=== PATIENT | male | born 1970 | race Caucasian/White ===

== ENCOUNTER → 2023-04-25 12:16 | Outpatient (REF) | payer BC, SELFPAY ==
[2023-04-25 13:29] LABS: Hematocrit 47.8 % (39.0-52.0)
[2023-04-25 14:04] LABS: PSA, Total - Screen 0.79 ng/ml (0.0-4.0)
[2023-04-28 12:37] LABS: % Free Testosterone 2.4 % (1.6-2.9); Free Testosterone 78 pg/mL (47-244); Sex Hormone Binding Globulin 18 nmol/L (19-76); Total Testosterone 328 ng/dL (300-890)
== END ==
LOC: REG 12:16
PROVIDERS: ATTENDING PHYSICIAN Internal Medicine Endocrinology, Diabetes & Metabolism; FAMILY PHYSICIAN Family Medicine
DX: E23.0 Hypopituitarism (principal)
CPT/HCPCS: 36415; 84270; 84402; 84403; 85014; G0103

== ENCOUNTER → 2023-05-22 07:11 | Outpatient (REF) | payer BC, SELFPAY ==
[2023-05-22 07:46] LABS: % Basophils 0.6 % (0-2); % Eosinophils 1.9 % (0-6); % Immature Granulocytes 0.4 % (0-0.5); % Lymphocytes 21.4 % (20.5-51.1); % Neutrophils 67.7 % (42.2-75.2); Absolute Basophils 0.1 10^3/uL (0-0.2); Absolute Eosinophils 0.2 10^3/uL (0-0.7); Absolute Lymphocytes 1.9 10^3/uL (1.2-3.4); Absolute Monocytes 0.7 10^3/uL (0.1-0.6); Absolute Neutrophils 6.1 10^3/uL (1.4-6.5); Hematocrit 46.8 % (39.0-52.0); Hemoglobin 15.9 g/dL (13.0-18.0); Mean Corpuscular Hgb 31.2 pg (27.0-31.0); Mean Corpuscular Volume 91.8 fL (80.0-94.0); Mean Platelet Volume 10.9 fL (7.4-10.4); Nucleated Red Blood Cells % 0 % (-); Platelet Count 197 10^3/uL (130-400); Red Cell Dist. Width 14.2 % (11.5-14.5)
[2023-05-22 08:12] LABS: ALT (SGPT) 19 U/L (0-50); AST (SGOT) 24 U/L (17-59); Albumin 4.7 g/dl (3.5-5.0); Alkaline Phosphatase 70 U/L (38-126); Blood Urea Nitrogen 22 mg/dl (9-20); Calcium 9.8 mg/dl (8.4-10.2); Carbon Dioxide 27 mmol/L (22-30); Chloride 100 mmol/L (98-107); Glucose 93 mg/dl (70-99); HDL Cholesterol 60 mg/dl; LDL Cholesterol, Calculated 77 mg/dl; Potassium 4.8 mmol/L (3.5-5.1); Sodium 137 mmol/L (135-145); Total Bilirubin 0.8 mg/dl (0.2-1.3); Total Cholesterol 162 mg/dl (50-199); Total Protein 7.2 g/dl (6.3-8.2); Triglyceride 127 mg/dl (10-149); Very Low Density Lipoprotein 25 mg/dl (0-30); eGFR > 60.00
[2023-05-22 09:26] LABS: Glycohemoglobin (HgbA1c) 5.5 % (4.0-5.6)
== END ==
LOC: REG 07:11
PROVIDERS: ATTENDING PHYSICIAN Family Medicine; REFERRING PHYSICIAN Internal Medicine Endocrinology, Diabetes & Metabolism
DX: Z00.00 Encounter for general adult medical examination without abnormal findings (principal); R79.89 Other specified abnormal findings of blood chemistry; G47.33 Obstructive sleep apnea (adult) (pediatric); R73.03 Prediabetes; Z82.49 Family history of ischemic heart disease and other diseases of the circulatory system
CPT/HCPCS: 36415; 80053; 80061; 83036; 85025

== ENCOUNTER → 2023-07-06 08:51 | Outpatient (REF) | payer BC, SELFPAY ==
[2023-07-06 10:12] LABS: Hematocrit 45.7 % (39.0-52.0)
== END ==
LOC: REG 08:51
PROVIDERS: ATTENDING PHYSICIAN Internal Medicine Endocrinology, Diabetes & Metabolism; FAMILY PHYSICIAN Family Medicine
DX: E23.0 Hypopituitarism (principal)
CPT/HCPCS: 36415; 85014

== ENCOUNTER → 2023-09-25 07:10 | Outpatient (REF) | payer BC, SELFPAY ==
[2023-09-25 08:57] LABS: % Basophils 0.7 % (0-2); % Eosinophils 3.8 % (0-6); % Immature Granulocytes 0.4 % (0-0.5); % Lymphocytes 25.2 % (20.5-51.1); % Monocytes 9.4 % (1.7-9.3); % Neutrophils 60.5 % (42.2-75.2); Absolute Basophils 0.1 10^3/uL (0-0.2); Absolute Eosinophils 0.4 10^3/uL (0-0.7); Absolute Lymphocytes 2.5 10^3/uL (1.2-3.4); Absolute Monocytes 0.9 10^3/uL (0.1-0.6); Absolute Neutrophils 5.9 10^3/uL (1.4-6.5); Hemoglobin 15.9 g/dL (13.0-18.0); Mean Corp Hgb Conc. 34.6 g/dL (33.0-37.0); Mean Corpuscular Hgb 31.4 pg (27.0-31.0); Mean Corpuscular Volume 90.9 fL (80.0-94.0); Nucleated Red Blood Cells % 0 % (-); Platelet Count 195 10^3/uL (130-400); Red Blood Cell Count 5.06 10^6/uL (4.70-6.10); Red Cell Dist. Width 13.9 % (11.5-14.5); White Blood Cell Count 9.8 10^3/uL (4.8-10.8)
[2023-09-25 09:34] LABS: Glycohemoglobin (HgbA1c) 5.4 % (4.0-5.6)
[2023-09-25 11:05] LABS: ALT (SGPT) 16 U/L (0-50); AST (SGOT) 25 U/L (17-59); Albumin 4.5 g/dl (3.5-5.0); Alkaline Phosphatase 67 U/L (38-126); Blood Urea Nitrogen 22 mg/dl (9-20); Calcium 9.4 mg/dl (8.4-10.2); Carbon Dioxide 28 mmol/L (22-30); Chloride 101 mmol/L (98-107); Glucose 83 mg/dl (70-99); HDL Cholesterol 65 mg/dl; LDL Cholesterol, Calculated 96 mg/dl; Potassium 4.6 mmol/L (3.5-5.1); Sodium 137 mmol/L (135-145); Total Bilirubin 0.8 mg/dl (0.2-1.3); Total Cholesterol 180 mg/dl (50-199); Total Protein 6.9 g/dl (6.3-8.2); Triglyceride 96 mg/dl (10-149); Very Low Density Lipoprotein 19 mg/dl (0-30); eGFR > 60.00
== END ==
LOC: REG 07:10
PROVIDERS: ATTENDING PHYSICIAN Family Medicine; REFERRING PHYSICIAN Internal Medicine Endocrinology, Diabetes & Metabolism
DX: R73.03 Prediabetes (principal); G47.33 Obstructive sleep apnea (adult) (pediatric); Z00.00 Encounter for general adult medical examination without abnormal findings
CPT/HCPCS: 36415; 80053; 80061; 83036; 85025

== ENCOUNTER → 2023-10-29 17:12 | Outpatient (REF) | payer BC, SELFPAY ==
[2023-10-29 17:50] LABS: Hematocrit 43.7 % (39.0-52.0)
[2023-10-31 22:04] LABS: % Free Testosterone 2.3 % (1.6-2.9); Free Testosterone 29 pg/mL (47-244); Sex Hormone Binding Globulin 17 nmol/L (19-76); Total Testosterone 125 ng/dL (300-890)
== END ==
LOC: REG 17:12
PROVIDERS: ATTENDING PHYSICIAN Internal Medicine Endocrinology, Diabetes & Metabolism; FAMILY PHYSICIAN Family Medicine
DX: E23.0 Hypopituitarism (principal)
CPT/HCPCS: 36415; 84270; 84402; 84403; 85014; G0103

== ENCOUNTER → 2023-11-08 11:58 | Outpatient (REF) | payer BC, SELFPAY ==
[2023-11-10 13:30] LABS: % Free Testosterone 2.4 % (1.6-2.9); Free Testosterone 44 pg/mL (47-244); Sex Hormone Binding Globulin 15 nmol/L (19-76); Total Testosterone 180 ng/dL (300-890)
== END ==
LOC: REG 11:58
PROVIDERS: ATTENDING PHYSICIAN Internal Medicine Endocrinology, Diabetes & Metabolism; FAMILY PHYSICIAN Family Medicine
DX: E23.0 Hypopituitarism (principal)
CPT/HCPCS: 36415; 84270; 84402; 84403

== ENCOUNTER → 2024-04-30 07:39 | Outpatient (REF) | payer BC, SELFPAY ==
[2024-04-30 08:10] LABS: Hematocrit 51.4 % (39.0-52.0)
[2024-04-30 09:13] LABS: PSA, Total - Screen 0.82 ng/ml (0.0-4.0)
[2024-05-01 22:35] LABS: % Free Testosterone 2.6 % (1.6-2.9); Free Testosterone 87 pg/mL (47-244); Sex Hormone Binding Globulin 14 nmol/L (19-76); Total Testosterone 335 ng/dL (300-890)
== END ==
LOC: REG 07:39
PROVIDERS: ATTENDING PHYSICIAN Internal Medicine Endocrinology, Diabetes & Metabolism; FAMILY PHYSICIAN Family Medicine
DX: N40.0 Benign prostatic hyperplasia without lower urinary tract symptoms (principal)
CPT/HCPCS: 36415; 84270; 84402; 84403; 85014; G0103

== ENCOUNTER → 2024-06-10 18:29 | Outpatient (REF) | payer BC, SELFPAY | LOC: MRI 3T 18:29 | PROVIDERS: ATTENDING PHYSICIAN Pain Medicine Interventional Pain Medicine; FAMILY PHYSICIAN Family Medicine | DX: M54.12 Radiculopathy, cervical region (principal) | CPT/HCPCS: 72141 ==

== ENCOUNTER 2024-07-15 09:56 | Outpatient (RCR) | payer BC, SELFPAY | END 2024-07-15 23:59 | disposition home or self-care (01) | LOC: RPT 09:56 | PROVIDERS: ATTENDING PHYSICIAN Pain Medicine Interventional Pain Medicine; FAMILY PHYSICIAN Family Medicine | DX: M54.12 Radiculopathy, cervical region (principal); Z73.6 Limitation of activities due to disability; M62.81 Muscle weakness (generalized) | CPT/HCPCS: 97110; 97162 ==

== ENCOUNTER 2024-08-06 07:58 | Outpatient (RCR) | payer BC, SELFPAY | END 2024-08-06 23:59 | disposition home or self-care (01) | LOC: RPT 07:58 | PROVIDERS: ATTENDING PHYSICIAN Pain Medicine Interventional Pain Medicine; FAMILY PHYSICIAN Family Medicine | DX: M54.12 Radiculopathy, cervical region (principal); Z73.6 Limitation of activities due to disability; M62.81 Muscle weakness (generalized); M50.323 Other cervical disc degeneration at C6-C7 level | CPT/HCPCS: 97110 ==

== ENCOUNTER 2024-08-28 08:57 | Outpatient (RCR) | payer BC, SELFPAY | END 2024-08-28 23:59 | disposition home or self-care (01) | LOC: RPT 08:57 | PROVIDERS: ATTENDING PHYSICIAN Pain Medicine Interventional Pain Medicine; FAMILY PHYSICIAN Family Medicine | DX: M54.12 Radiculopathy, cervical region (principal); Z73.6 Limitation of activities due to disability; M62.81 Muscle weakness (generalized); M50.323 Other cervical disc degeneration at C6-C7 level | CPT/HCPCS: 97110 ==

== ENCOUNTER → 2024-09-02 14:47 | Outpatient (REF) | payer BC, SELFPAY | LOC: CLAB 14:47 | PROVIDERS: ATTENDING PHYSICIAN Nurse Practitioner Primary Care; FAMILY PHYSICIAN Family Medicine | DX: L30.8 Other specified dermatitis (principal) | CPT/HCPCS: 87070; 87077; 87147; 87186; 87205 ==

== ENCOUNTER → 2024-11-04 07:41 | Outpatient (REF) | payer BC, SELFPAY ==
[2024-11-04 08:18] LABS: Hematocrit 48.6 % (39.0-52.0)
== END ==
LOC: REG 07:41
PROVIDERS: ATTENDING PHYSICIAN Internal Medicine Endocrinology, Diabetes & Metabolism; FAMILY PHYSICIAN Family Medicine
DX: E23.0 Hypopituitarism (principal)
CPT/HCPCS: 36415; 84403; 85014

== ENCOUNTER → 2024-12-03 08:41 | Outpatient (REF) | payer BC, SELFPAY ==
[2024-12-03 09:09] LABS: Hematocrit 48.8 % (39.0-52.0); Hemoglobin 16.3 g/dL (13.0-18.0); Mean Corp Hgb Conc. 33.4 g/dL (33.0-37.0); Mean Corpuscular Volume 89.9 fL (80.0-94.0); Nucleated Red Blood Cells % 0 % (-); Platelet Count 197 10^3/uL (130-400); Red Cell Dist. Width 14.1 % (11.5-14.5)
[2024-12-03 10:21] LABS: PSA, Total - Screen 0.77 ng/ml (0.0-4.0); TSH 2.61 uIU/ml (0.47-4.68)
[2024-12-03 10:35] LABS: ALT (SGPT) 25 U/L (0-50); AST (SGOT) 25 U/L (17-59); Albumin 4.4 g/dl (3.5-5.0); Alkaline Phosphatase 56 U/L (38-126); Blood Urea Nitrogen 16 mg/dl (9-20); Calcium 9.2 mg/dl (8.4-10.2); Carbon Dioxide 27 mmol/L (22-30); Chloride 107 mmol/L (98-107); Glucose 91 mg/dl (70-99); HDL Cholesterol 58 mg/dl; LDL Cholesterol, Calculated 89 mg/dl; Potassium 4.6 mmol/L (3.5-5.1); Sodium 140 mmol/L (135-145); Total Protein 7.0 g/dl (6.3-8.2); Very Low Density Lipoprotein 37 mg/dl (0-30); eGFR > 60.00
[2024-12-03 10:49] LABS: Glycohemoglobin (HgbA1c) 5.6 % (4.0-5.6)
== END ==
LOC: REG 08:41
PROVIDERS: ATTENDING PHYSICIAN Family Medicine
DX: Z00.00 Encounter for general adult medical examination without abnormal findings (principal); R73.03 Prediabetes; R79.89 Other specified abnormal findings of blood chemistry; Z82.49 Family history of ischemic heart disease and other diseases of the circulatory system; Z12.5 Encounter for screening for malignant neoplasm of prostate
CPT/HCPCS: 36415; 80053; 80061; 83036; 84403; 84443; 85025; G0103